=== PATIENT | female | born 1980 | race Two or more races ===

== ENCOUNTER 2018-02-01 19:17 | Inpatient (IN) | payer OTHER ==
[2018-02-01 20:16] VITALS: BMI 26.3
[2018-02-01] MEDS ORDERED: Oxytocin 30 units/LR 500ML 30 U/500 ML BAG IV SCH (20:30)
[2018-02-01] MEDS: Lactated Ringer's 1,000 ML IV SCH ×2 (20:30→21:31)
[2018-02-01] MEDS ORDERED: Lactated Ringer's 1,000 ML IV SCH (20:30)
[2018-02-01 21:17] LABS: BASO % 0.2 % (0.0-2.0); EOS # 0.1 K/uL (0.0-0.7); EOS % 0.8 % (0.0-4.0); HEMOGLOBIN 12.9 g/dL (12.0-16.0); LYMPH # 2.2 K/uL (1.0-4.3); LYMPH % 17.3 % (20.0-40.0); MEAN CORPUSCULAR HEMOGLOBIN 32.4 pg (27.0-31.0); MEAN CORPUSCULAR HGB CONC 33.8 g/dL (33.0-37.0); MONO # 0.9 K/uL (0.0-0.8); MONO % 7.2 % (0.0-10.0); NEUT # 9.3 K/uL (1.8-7.0); NEUT % 74.5 % (50.0-75.0); NRBC % 0.1 % (0.0-0.0); RBC 3.99 Mil/uL (3.80-5.20); RED CELL DISTRIBUTION WIDTH 13.3 % (11.5-14.5); WHITE BLOOD COUNT 12.5 K/uL (4.8-10.8)
[2018-02-01] MEDS ORDERED: Fentanyl/Bupivacaine HCl 250 ML EPI ONE (22:08)
[2018-02-01] MEDS ORDERED: Lidocaine 1% Inj (20ml) ONE (23:41)
[2018-02-02] MEDS ORDERED: Oxycodone/Acetaminophen 5/325 mg Tab PO PRN ×2 (00:10)
[2018-02-02] MEDS ORDERED: Benzocaine/Menthol SPRAY TOP PRN (00:10)
--- NOTE | 2018-02-02 00:19 | OBADHP ---
Datetime: 02/01/2018 20:20 Admit Comment, IP Provider: 37 yo at 39.4 weeks GA, EDC on 02/04/18 based on LMP 04/30/17, c/w first trimester US presents to [facility] c/o bloody mucus plug since 3 am today and CTX from 3 pm this saqib elysia. Pt reports CTX q7-8 min lasting for 40 seconds, progressively getting stronger. Denies LOF. +FM . pt is GBS neg. ROS: all 12 systems were reviewed and neg except as noted in HPI PNC: Dr. Jimena Thomas PNL: HIV neg, rpr neg, hebsag neg, rubella immune, GBS neg, B+, ab neg. Past obhx: x 1 in 2011, full term, no complication Past gynx: denies hx STI or abnormal pap. Pmhx: denies Pshx: denies Family hx: paternal grandmother has colon CA. social hx: denies hx smoking, EtOH or recreational drug use Meds: PNV Allergies: NKDA Assessment: 37 yo IUP @ 39.4 weeks GA is in active labor Plan Admit to L_D Continuous heart tracing Initiate labor protocol GBS negative labs IVFs Sultan Parker, pgy-1 Case d/w on-call OB Hospitalist Dr. Gilbert Extremities - PN: Normal Abdomen - PN: Normal Back - PN: Normal Lungs - PN: Normal Heart - PN: Normal Neurologic - PN: Normal HEENT - PN: Normal General - PN: Normal FHR - Baseline A Provider: 130s Membranes, Provider: Intact Contraction Comments Provider: q6 Pool Provider: Negative IP Hx Assessment: The History has been Reviewed and is Current Vital Signs Provider: Reviewed (Annotations: Data stored by CPN on behalf of user) IP Chief Complaint: Uterine contractions NICHD Variability Prov Fetus A: Moderate 6-25bpm NICHD Accel Fetus A IP Provider: [id number] FHR Category Provider Fetus A: Category I NICHD Decel Fetus A IP Provider: None Dilatation, Provider: 3-4 Effacement, Provider: 50 Station, Provider: -1 Genitourinary Exam: Normal EGA AdmitDate IP: 39.4 IP Adm Impression: Term, intrauterine IP Admit Plan: Admit to unit; Initiate labor protocol
--- NOTE | 2018-02-02 00:22 | OBDS ---
DELIVERY PERSONNEL Delivery Doctor: Jesus Gilbert MD [facility]: Dr. Oshea MATERNAL INFORMATION Delivery Anesthesia: Epidural Medications in Delivery: Pitocin 30 units in 500 mls Estimated Blood Loss (ml): 200 Placenta Cultured: No Provider Comments: Normal spontaneous vaginal delivery. Delivered viable female with Apgars of 9 and 9 at one and [address] 1 reduced. Placenta delivered spontaneously. Laceration repaired, as above. Uterus firm and appr opriately hemostatic following delivery. Patient tolerated delivery and repair well. No complications . Estimated blood loss 200 mL LABOR SUMMARY EDC: 02/04/2018 00:00 No. Babies in Womb: 1 Attempted: No Labor Anesthesia: Epidural LABOR INFORMATION Reason for Induction: Not Applicable Oxytocin: N/A Group B Beta Strep: Negative Antibiotics # of Doses: N/A Antibiotics Time of Last Dose: N/A Steroids Given: None Reason Steroids Not Administered: Not Applicable MEMBRANES Membranes Rupture Method: Spontaneous Rupture of Membranes: 02/02/2018 21:45 Length of Rupture (hrs): 2.07 Amniotic Fluid Color: Light Meconium Amniotic Fluid Amount: Small Amniotic Fluid Odor: Normal STAGES OF LABOR Stage 3 hrs: 0 Stage 3 min: 3 VAGINAL DELIVERY Laceration Extension: Second Degree Laceration Type: Perineal Laceration Repair: Yes Laceration Repair Note: Secondary midline perineal laceration. Area infiltrated with 1% lidocaine. L aceration repaired with 2. 0 repeat without complication. Patient tolerated well. Initial Vag Sponge Count: 15 Final Vag Sponge Count: 15 Initial Vag Sharps Count: 1 Final Vag Sharps Count: 1 Sponge Count Correct: Yes Sharps Count Correct: Yes Count Comment: MD confirmed count BABY A INFORMATION Infant Delivery Date/Time: 02/02/2018 23:49 Method of Delivery: Vaginal Born in Route : No : N/A Forceps: N/A Vacuum Extraction: N/A Shoulder Dystocia : No SHOULDER DYSTOCIA BABY A Delivery Date/Time: 02/02/2018 23:49 PRESENTATION/POSITION BABY A Presentation: Cephalic Cephalic Presentation: Vertex Breech Presentation: N/A PLACENTA INFORMATION BABY A Placenta Delivery Time : 02/02/2018 23:52 Placenta Method of Delivery: Spontaneous Placenta Status: Delivered SCORES BABY A Heart Rate 1 min: >100 bpm Resp Effort 1 min: Good Cry Reflex Irritability 1 min: Cough or Sneeze or Pulls Away Muscle Tone 1 min: Some Flexion of Extremities Color 1 min: Body [place], Extremities Blue Resuscitation Effort 1 min: N/A SCORE 1 MIN: 8 Heart Rate 5 min: >100 bpm Resp Effort 5 min: Good Cry Reflex Irritability 5 min: Cough or Sneeze or Pulls Away Muscle Tone 5 min: Active Motion Color 5 min: Body [place], Extremities Blue Resuscitation Effort 5 min: N/A SCORE 5 MIN: 9 INFORMATION BABY A Gestational Age at Delivery: 39.5 Gestational Status: Term Infant Outcome : Liveborn Condition : Stable Infant Sex: Female IDENTIFICATION/MEDS BABY A ID Band Number: [id number] ID Band Location: Left Leg; Left Arm WEIGHT/LENGTH BABY A Infant Birthweight (gms): 3635 Weight (lb): 8 Weight (oz): 0 CORD INFORMATION BABY A No. Cord Vessels: 3 Nuchal Cord : Around Neck x1, Tight Nuchal Cord Other: N/A True Knot: N/A Infant Cord pH Baby Arterial: N/A Cord pH Baby Venous: N/A Cord Blood Taken: Yes Banking/Donate Info: N/A Suction: Mouth; Nose ASSESSMENT BABY A Complications: None Physical Findings at Delivery: Within Normal Limits Respirations: Appears Normal Belting Cutter/ALS Called : No Transferred To: Remains with Mother
[2018-02-02 07:37] LABS: MEAN CELL VOLUME 96.5 fl (81.0-99.0); MEAN CORPUSCULAR HEMOGLOBIN 32.1 pg (27.0-31.0); MEAN CORPUSCULAR HGB CONC 33.3 g/dL (33.0-37.0); RBC 3.75 Mil/uL (3.80-5.20); WHITE BLOOD COUNT 15.6 K/uL (4.8-10.8)
--- NOTE | 2018-02-03 00:57 | OBPPN ---
Datetime: 02/02/2018 23:55 PP Pain Prov: Within normal limits PP Nausea Prov: Denies PP Flatus Prov: Yes PP BM Prov: Yes PP Breasts Prov: Normal PP Heart Prov: Normal PP Lungs Prov: Normal PP Abdomen/Uterus Prov: Normal PP Lochia Prov: Normal PP Vulva/Perineum Prov: Normal PP CVA Tenderness Prov: Normal PP Extremities Prov: Normal PP Progress Prov: Normal PP Impression Prov: Normal progression PP Plan Prov: Continue present management PP Progress Note Prov: PPD 1 Anticipate dischare in AM Vital Signs Provider PP: Reviewed; Within Normal Limits
--- NOTE | 2018-02-03 08:22 | OBPPN ---
Datetime: 02/03/2018 08:18 PP Pain Prov: Within normal limits PP Nausea Prov: Denies PP Flatus Prov: Yes PP BM Prov: Yes PP Breasts Prov: Normal PP Heart Prov: Normal PP Lungs Prov: Normal PP Abdomen/Uterus Prov: Normal PP Lochia Prov: Normal PP Vulva/Perineum Prov: Normal PP CVA Tenderness Prov: Normal PP Extremities Prov: Normal PP Progress Prov: Normal PP Impression Prov: Normal progression PP Plan Prov: Discharge PP Progress Note Prov: She feels fine and ready to go home. A: S.P day 2 PLAN: discharge home and follow up in 6w Vital Signs Provider PP: Reviewed; Within Normal Limits
--- NOTE | 2018-02-03 08:22 | OBDCSUM ---
Datetime: 02/03/2018 08:19 Discharged to, Provider: Home Follow up at, Provider: William Disch Instr Activity: Normal activity Disch Instr Diet: Regular Discharge Instructions, Provider: Routine instructions given Discharge Diagnosis, Provider: Term Delivered Follow up in weeks, Provider: 6w Disch Referrals: None Contraception discussed, Prov: Yes Disch Activity Restrictions: No sexual activity; Nothing in vagina - [place], tampons, douche Discharge Comment, Provider: Motrin 600mg po q 6h prn pain
[2018-02-03 18:08] VITALS: BP 122/72; PULSE 74; RESP 20; TEMP 98.2; O2SAT 98
== END 2018-02-03 12:50 | disposition home or self-care (01) | DRG 775 ==
LOC: H.EROB2 19:17 → H.L&D 20:22 → H.OB/GYN 02-02 01:25
PROVIDERS: ADMIT Obstetrics & Gynecology; ATTEND Obstetrics & Gynecology
PROC: 10E0XZZ Delivery of Products of Conception, External Approach (ICD-10-PCS; principal; 2018-02-01)
PROC: 0KQM0ZZ Repair Perineum Muscle, Open Approach (ICD-10-PCS; 2018-02-01)
PROC: 4A1HXCZ Monitoring of Products of Conception, Cardiac Rate, External Approach (ICD-10-PCS; 2018-02-01)
DX: O69.1XX0 Labor and delivery complicated by cord around neck, with compression, not applicable or unspecified (principal); O70.1 Second degree perineal laceration during delivery; O09.523 Supervision of elderly multigravida, third trimester; Z37.0 Single live birth; Z3A.39 39 weeks gestation of pregnancy